=== PATIENT | female | born 1965 | race Caucasian/White ===

== ENCOUNTER 2016-06-10 13:43 | Emergency (ER) | payer MEDICAID ==
[~2016-06-10] VITALS: Wt 65.5 kg
[~2016-06-10 13:43] MED LIST: CYCL-319 PO; IBUP800T25 PO
[2016-06-10] MEDS ORDERED: KETOROLAC 60 MG INJ IM STA (15:45)
[2016-06-10 15:59] LABS: URINE BLOOD (Dip) POC Negative (NEGATIVE)
[2016-06-10] MEDS ORDERED: CIPROFLOXACIN 500 MG TAB PO ONE (16:30)
[2016-06-10] MEDS ORDERED: ULT50 PO (17:58)
[2016-06-10] MEDS ORDERED: CIPR500T4 PO (17:58)
[2016-06-10] MEDS ORDERED: IBUP-1542 PO (17:58)
--- NOTE | 2016-06-10 18:00 | ERD ---
ER Documentation Chief Complaint Date/Time DATE: 06/10/16 TIME: 17:59 Chief Complaint LOW BACK PAIN, LEFT SIDE PAIN, DARK/FOUL-SMELLING URINE, HX OF KIDNEY STONE HPI This 42-year-old female complains of left-sided low back pain for last 2 days. She also has some slight dysuria. She denies any upper back pain or fevers or vomiting. Patient concerned that she has a history of kidney stone. ROS All systems reviewed and are negative except as per history of present illness. Medications Home Meds Active Scripts Ciprofloxacin Hcl* (Ciprofloxacin Hcl*) 500 Mg Tablet, 500 MG PO BID for 5 Days , TAB Prov:GLENN GUERIN MD 06/10/16 Ibuprofen* (Motrin*) 600 Mg Tab, 600 MG PO Q6, #30 TAB Prov:GLENN GUERIN MD 06/10/16 Tramadol HCl (Tramadol HCl) 50 Mg Tablet, 50 MG PO Q4 Y for PAIN, #20 TAB Prov:GLENN GUERIN MD 06/10/16 Ibuprofen* (Motrin*) 800 Mg Tab, 800 MG PO Q6, #30 TAB Prov:RAMONA COLEMAN NP 08/25/15 Cyclobenzaprine Hcl* (Cyclobenzaprine Hcl*) 10 Mg Tablet, 10 MG PO TID, #15 TAB Prov:RAMONA COLEMAN NP 08/25/15 Allergies Allergies: Coded Allergies: No Known Allergy (Unverified , 12/02/13) PMhx/Soc History of Surgery: Yes (tonsils; tubal ligation) Anesthesia Reaction: No Hx Neurological Disorder: No Hx Respiratory Disorders: No Hx Psychiatric Problems: No Hx Miscellaneous Medical Probl: Yes (KIDNEY STONES) Hx Alcohol Use: No Hx Substance Use: No Hx Tobacco Use: No Smoking Status: Never smoker Physical Exam Vitals Vital Signs Date Time Temp Pulse Resp B/P Pulse Ox O2 Delivery O2 Flow Rate FiO2 06/10/16 14:00 98.3 91 18 164/74 100 Physical Exam Const: [] Alert, [id number]. Head: Atraumatic Eyes: Normal Conjunctiva ENT: Normal External Ears, Nose and Mouth. Neck: Full range of motion..~ No meningismus. Resp: Clear to auscultation bilaterally Cardio: Regular rate and rhythm, no murmurs Abd: Soft, non tender, non distended. Normal bowel sounds Skin: No petechiae or rashes Back: No midline or flank tenderness tenderness primarily in the left L3-L4 paraspinous muscles. No significant CVA tenderness. Ext: No cyanosis, or edema Neur: Awake and alert Psych: Normal Mood and Affect Results 24 hrs Laboratory Tests Test 06/10/16 15:59 Bedside Urine Blood Negative Bedside Urine Glucose (UA) Negative Bedside Urine Ketones (LAB) Negative Bedside Urine Leukocyte Esterase (L Negative Bedside Urine Nitrite (LAB) Positive Bedside Urine Protein (LAB) Trace Bedside Urine pH (LAB) 5.5 Current Medications Medications (Trade) Dose Ordered Sig/Zena Route PRN Reason Start Time Stop Time Status Last Admin Dose Admin Ketorolac Tromethamine (Toradol) 60 mg ONCE STAT IM 06/10/16 15:45 06/10/16 15:46 DC 06/10/16 15:56 Ciprofloxacin (Cipro) 500 mg ONCE ONCE PO 06/10/16 16:30 06/10/16 16:31 DC 06/10/16 16:45 Procedures/MDM Urine shows l positive nitrites without leukocytes, hemoglobin. HCG is negative. Limited renal ultrasound shows no acute abnormalities. Patient was given Toradol 60 mg IM and Cipro 500 mg by mouth. Patient signs and symptoms are consistent with muscular skeletal low back pain patient will be treated for UTI as well. Patient's signs and symptoms are not suggestive of septic stone is there is no hemoglobin and no significant flank pain. She will treated with tramadol, ibuprofen and Cipro at home and instructed to follow-up with primary doctor this week. She should return for fevers, vomiting, worsening pain, new or worsening symptoms. The patient was stable with no new complaints during the ER course. Clinically, there is no current evidence to suggest meningitis, sepsis, acute abdomen, pneumonia, acute coronary syndrome, pulmonary embolism, or any other emergent condition appearing to require further evaluation or hospitalization. The patient should certainly return for any new or worsening symptoms per the aftercare instructions. They should otherwise follow-up with her primary care doctor for reevaluation this week. Departure Diagnosis: Primary Impression: UTI (urinary tract infection) Urinary tract infection type: acute cystitis Hematuria presence: without hematuria Qualified Code: N30.00 - Acute cystitis without hematuria Additional Impression: Back pain Back pain location: low back pain Chronicity: acute Back pain laterality: left Sciatica presence: without sciatica Qualified Code: M54.5 - Acute left- sided low back pain without sciatica Condition: Stable Patient Instructions: Understanding Urinary Tract Infections (UTIs), Back Pain (Acute Or Chronic) Additional Instructions: ultrsound normal. orina noah infeccion. Cheque otro vez con doe doctor primario en el proximo khan or regresa para mas o nueva simptomas- see vomito. GLENN GUERIN MD Jun 10, 2016 18:00
--- NOTE | 2016-06-10 21:38 | RADRPT ---
PROCEDURE: Renal US. CLINICAL INDICATION: Flank pain TECHNIQUE: Multiple sonographic images of the kidneys were obtained. The images were reviewed on a PACS workstation. COMPARISON: No prior studies are available for comparison. FINDINGS: The right kidney measures 9.4 cm. The left kidney measures 10.2 cm. The kidneys demonstrate normal e chogenicity. No masses, stones or hydronephrosis are identified. The bladder is decompressed. IMPRESSION: Unremarkable kidneys. If further characterization is needed CT or MRI could be helpful. RPTAT: AA .Eric Morales MD, MD Date Time Electronically viewed and signed by .Eric Morales MD, on 06/10/2016 17:30 .P/
== END 2016-06-10 18:16 | disposition home or self-care (01) ==
LOC: FTE 13:43
DX: N30.00 Acute cystitis without hematuria (principal); M54.5 Low back pain
CPT/HCPCS: 76775; 81003; 96372; J1885; Z7502; Z7610

== ENCOUNTER 2018-08-29 15:12 | Emergency (ER) | payer MEDICAID ==
[~2018-08-29] VITALS: Ht 162.6 cm; Wt 70.4 kg
[~2018-08-29 15:12] MED LIST changes: +CIPR500T4 PO; -CYCL-319 PO; +CYCL10TA7 PO; +IBUP-1542 PO; -IBUP800T25 PO; +IBUP800T48 PO; +TRAM50TA2 PO
[2018-08-29 15:33] VITALS: Ht 162.6 cm; Wt 70.4 kg
[2018-08-29] MEDS ORDERED: GLUC-181 PO (18:10)
[2018-08-29 18:30] VITALS: BP 119/75; PULSE 64; RESP 16
[2018-08-29] MEDS ORDERED: ONDANSETRON 4 MG INJ IV STA (18:41)
[2018-08-29] MEDS ORDERED: KETOROLAC 30 MG INJ IV STA (18:41)
[2018-08-29] MEDS ORDERED: CIPR500T4 PO (20:51)
[2018-08-29] MEDS ORDERED: IBUP-1542 PO (20:51)
--- NOTE | 2018-08-29 20:55 | ERD ---
ER Documentation Chief Complaint Chief Complaint RLQ abd pain x 1 week; denies n/v/diarrhea HPI 52-year-old female presenting with right lower quadrant pain for the past 1 week. She states that initially she felt some pain in her lower back that has since moved to her right lower quadrant. The pain started mostly in her right flank. The pain has been constant, dull, aching, moderate, worse with sitting up and laying down, better with walking. No associated dysuria or hematuria. No frequency or urgency., Diarrhea or constipation.denies associated nausea, fever, chills. no vaginal bleeding or discharge. ROS All systems reviewed and are negative except as per history of present illness. Medications Home Meds Active Scripts Ibuprofen* (Motrin*) 600 Mg Tab, 600 MG PO Q6H PRN for PAIN AND OR ELEVATED TEMP, #30 TAB Prov:ROCÍO ROBERTS MD 08/29/18 Ciprofloxacin Hcl* (Ciprofloxacin Hcl*) 500 Mg Tablet, 500 MG PO BID for 10 Days, TAB Prov:ROCÍO ROBERTS MD 08/29/18 Reported Medications Glucosam/Chond/Hyalu/Cf Borate (Move Free Joint Health Tablet) 1 Each Tablet, 2 EACH PO DAILY, TAB 08/29/18 Discontinued Scripts Ciprofloxacin Hcl* (Ciprofloxacin Hcl*) 500 Mg Tablet, 500 MG PO BID for 5 Days, TAB Prov:GLENN GUERIN MD 06/10/16 Ibuprofen* (Motrin*) 600 Mg Tab, 600 MG PO Q6, #30 TAB Prov:GLENN GUERIN MD 06/10/16 Tramadol HCl (Tramadol HCl) 50 Mg Tablet, 50 MG PO Q4 PRN for PAIN, #20 TAB Prov:GLENN GUERIN MD 06/10/16 Ibuprofen* (Motrin*) 800 Mg Tab, 800 MG PO Q6, #30 TAB Prov:RAMONA COLEMAN NP 08/25/15 Cyclobenzaprine Hcl* (Cyclobenzaprine Hcl*) 10 Mg Tablet, 10 MG PO TID, #15 TAB Prov:RAMONA COLEMAN NP 08/25/15 Allergies Allergies: Coded Allergies: No Known Allergy (Unverified , 08/29/18) PMhx/Soc History of Surgery: Yes (tonsils; tubal ligation) Anesthesia Reaction: No Hx Neurological Disorder: No Hx Respiratory Disorders: No Hx Psychiatric Problems: No Hx Miscellaneous Medical Probl: Yes (KIDNEY STONES) Hx Alcohol Use: No Hx Substance Use: No Hx Tobacco Use: No Smoking Status: Never smoker FmHx Family History: No diabetes Physical Exam Vitals Vital Signs Date Temp Pulse Resp B/P (MAP) Pulse Ox O2 O2 Flow FiO2 Time Delivery Rate 08/29/18 64 16 119/75 100 Room Air 18:30 (90) 08/29/18 98.8 81 20 137/83 98 15:33 (101) Physical Exam Const: No acute distress, well-appearing, nontoxic Head: Atraumatic Eyes: Normal Conjunctiva ENT: Normal External Ears, Nose and Mouth. Neck: Full range of motion. No meningismus. Resp: Clear to auscultation bilaterally Cardio: Regular rate and rhythm, no murmurs Abd: Soft, mild right lower quadrant and suprapubic tenderness to palpation with no rebound or guarding. No palpable masses., non distended. Normal bowel sounds Skin: No petechiae or rashes Back: No midline or flank tenderness Ext: No cyanosis, or edema Neur: Awake and alert Psych: Normal Mood and Affect Result Diagram: 08/29/18 1848 08/29/18 1848 Results 24 hrs Laboratory Tests Test 08/29/18 18:48 08/29/18 18:57 08/29/18 18:59 White Blood Count 6.6 10^3/ul Red Blood Count 4.16 10^6/ul Hemoglobin 12.6 g/dl Hematocrit 38.2 % Mean Corpuscular Volume 91.8 fl Mean Corpuscular Hemoglobin 30.3 pg Mean Corpuscular 33.0 g/dl Hemoglobin Concent Red Cell Distribution Width 13.1 % Platelet Count 193 10^3/UL Mean Platelet Volume 10.9 fl Immature Granulocytes % 0.200 % Neutrophils % 51.3 % Lymphocytes % 33.6 % Monocytes % 11.2 % Eosinophils % 3.2 % Basophils % 0.5 % Nucleated Red Blood Cells % 0.0 /100WBC Immature Granulocytes # 0.010 10^3/ul Neutrophils # 3.4 10^3/ul Lymphocytes # 2.2 10^3/ul Monocytes # 0.7 10^3/ul Eosinophils # 0.2 10^3/ul Basophils # 0.0 10^3/ul Nucleated Red Blood Cells # 0.0 10^3/ul Urine Color YELLOW Urine Clarity SLIGHTLY CLOUDY Urine pH 6.0 Urine Specific [place] 1.012 Urine Ketones NEGATIVE mg/dL Urine Nitrite POSITIVE mg/dL Urine Bilirubin NEGATIVE mg/dL Urine Urobilinogen NEGATIVE mg/dL Urine Leukocyte Esterase NEGATIVE [place]/ul Urine Microscopic RBC 1 /HPF Urine Microscopic WBC 1 /HPF Urine Squamous Epithelial Cells FEW /HPF Urine Bacteria FEW /HPF Urine Hemoglobin NEGATIVE mg/dL Urine Glucose NEGATIVE mg/dL Urine Total Protein NEGATIVE mg/dl Sodium Level 142 mmol/L Potassium Level 4.2 mmol/L Chloride Level 102 mmol/L Carbon Dioxide Level 26 mmol/L Anion Gap 14 Blood Urea Nitrogen 20 mg/dl Creatinine 0.69 mg/dl Est Glomerular Filtrat > 60 mL/min Rate mL/min Glucose Level 91 mg/dl Calcium Level 9.3 mg/dl Bedside Urine pH (LAB) 6.0 Bedside Urine Protein (LAB) Negative Bedside Urine Glucose (UA) Negative Bedside Urine Ketones (LAB) Negative Bedside Urine Blood Trace-intact Bedside Urine Nitrite (LAB) Positive Bedside Urine Leukocyte Esterase Negative (L POC Beta HCG, Qualitative NEGATIVE Current Medications Medications Dose Sig/Zena Start Time Status Last (Trade) Ordered Route PRN Stop Time Admin Dose Reason Admin Ondansetron 4 mg ONCE STAT 08/29/18 DC 08/29/18 HCl (Zofran IV 18:41 19:08 Inj) 08/29/18 18:43 Ketorolac 30 mg ONCE STAT 08/29/18 DC 08/29/18 Tromethamine IV 18:41 19:09 (Toradol) 08/29/18 18:43 Procedures/MDM EMERGENT LABS AND DIAGNOSTIC STUDIES: Lab Results above were reviewed and interpreted by me. CBC: no anemia or evidence of infection B MP: No evidence of electrolyte abnormality, renal failure, hypoglycemia UA: Positive for nitrates, with evidence of possible infection Radiology Results as interpreted by Radiology below were reviewed by Pb Roberts MD: CT abdomen and pelvis does not show any acute abnormalities Initial Nursing notes reviewed. Previous Medical Records requested via the Electronic Health Record. EMERGENCY DEPARTMENT COURSE / MEDICAL DECISION MAKING: Patient presents with 1 week of right lower quadrant abdominal pain with no other associated symptoms. She is afebrile with unremarkable vitals. Differential includes but is not limited to appendicitis, colitis, cystitis, ureterolithiasis, diverticulitis,fecal impaction. Low suspicion for ectopic , ovarian torsion, tubo-ovarian abscess, PID. Bloodwork, UA and test ordered to evaluate for above. CT did not show any significant abnormalities. Urinalysis did show nitrites. Patient may be suffering from she was given some pain medications with improvement of her symptoms here. Lower UTI versus pyelonephritis. I discussed the results of the testing with the patient. I recommended a trial of antibiotics. If any of her symptoms are not improving within the next 24-48 hours, she was encouraged to return for reevaluation in the ER. Patient feels comfortable with this plan. Prescription for Cipro was given. discharged in stable condition Patient's blood pressure was elevated (>120/80) but appears stable without evidence of hypertensive emergency or urgency. The patient was counseled about the risks of hypertension and urged to pursue outpatient monitoring and therapy within a week with their primary care physician. Departure Diagnosis: Primary Impression: Abdominal pain Abdominal location: right lower quadrant Qualified Codes: R10.31 - Right lower quadrant pain Condition: Stable Patient Instructions: Abdominal Pain, Cystitis Referrals: NO PRIMARY,CARE PHYSICIAN (PCP) Additional Instructions: Si tayo sintomas estan empeorando, regresa a la mohini de emergencias. ROCÍO ROBERTS MD Aug 29, 2018 20:55
== END 2018-08-29 23:00 | disposition home or self-care (01) ==
LOC: E/R 15:12
DX: R10.31 Right lower quadrant pain (principal)
CPT/HCPCS: 36415; 74176; 80048; 81001; 81003; 81025; 85025; 87086; 96374; 96375; J1885; J2405; Z7502